=== PATIENT | female | born 1990 | race Caucasian/White ===

== ENCOUNTER 2018-06-28 13:15 | Outpatient (RCR) | payer SELFPAY | END 2018-07-14 23:59 | disposition home or self-care (01) | LOC: INF 13:15 | DX: R69 Illness, unspecified (principal) ==

== ENCOUNTER 2019-10-29 06:41 | Inpatient (IN) | payer SELFPAY ==
[2019-10-29] VITALS (14 sets, daily range): BP systolic 121–131; BP diastolic 64–80; PULSE 70–333; RESP 14–22; TEMP 36.8–37.6; O2SAT 98–99
[2019-10-30 09:32] VITALS: PULSE 200
[2019-10-30 13:49] VITALS: BP 136/79; PULSE 126
[2019-10-31 10:54] VITALS: TEMP 37
== END 2019-10-31 14:33 | disposition home or self-care (01) | DRG 951 ==
DX: R69 Illness, unspecified (principal)
CPT/HCPCS: 85027; 86900; 86901

== ENCOUNTER 2019-11-01 08:19 | Inpatient (IN) | payer SELFPAY ==
--- NOTE | 2019-11-01 13:29 | W.PM.OBHPL1 ---
OB-HPI Labor/Delivery History of Present Illness Chief Complaint: Uterine Contractions; Signs/Symptoms Gestational HTN. EMILEE Calculator Estimated Delivery Date Method Current WG Current Estimate 11/09/19 LMP (Certain) 38w 6d History of Present Expected Delivery Route/Plan testing the delivery plan section Specific Issues/Plan testing the plan section [facility] Medical History (Updated 10/26/19 @ 12:36 by Aaliyah Harry) depression Surgical History (Updated 10/26/19 @ 12:36 by Aaliyah Harry) History of appendectomy Social History (Updated 10/26/19 @ 12:37 by Aaliyah Harry) Smoking/Tobacco Use Status: Never Alcohol Intake: former Drug use: Never Do you feel safe at home: Yes Do you feel safe in your relationship?: Yes History History 8 Para 7 Hx # Term Pregnancies 1 Multiple births Hx # Pregnancies 1 Ectopic pregnancies AB induced 1 Hx Number of Living Children 2 AB spontaneous 1 Past Pregnancies Del. Date GA/Weeks # Outcome Route Wgt Sex Labor Lgth Anesthesia Location Prov Complic Unknown 36 Successful vaginal Male 20 hrs Naomi Nance Unknown 39 No Successful vaginal 7 lb 6 oz Female 15 hrs Stephany uHll Meds Home Medications and Allergies Home Medications Medication Instructions Recorded Confirmed Type prenat.vits,humberto,[id number] 1 tab PO DAILY 10/29/19 10/29/19 History [ #2] Allergies Allergy/AdvReac Type Severity Reaction Status Date / Time No Known Allergies Allergy Unverified 10/29/19 12:17 Exam Detailed Labor and Delivery Exam Adams Score: Cervical Points Exam 0 1 2 3 Dilation Closed 1-2cm 3-4 cm 5-6cm Effacement 0-30% 40-50% 60-70% 80% Consistency Firm Medium Soft Station -3 -2 -1,0 +1,+2 Position Posterior Mid Anterior Risk Assessment Risk for Shoulder Dystocia Increased Risk?: Yes Risk for Pre-Eclampsia Daily Dose ASA Indicated: No Risk for Post- Hemorrhage At Risk?: Yes
== END 2019-11-02 13:43 | disposition home or self-care (01) | DRG 951 ==
DX: R69 Illness, unspecified (principal)

== ENCOUNTER 2019-11-05 14:11 | Inpatient (IN) | payer SELFPAY ==
--- NOTE | 2019-11-06 06:41 | W.OBDELIVERY ---
OB Labor/ Delivery Information Labor/Delivery Information Shoulder Dystocia: No Stages of Labor Onset of Labor Date: 11/05/19 Onset of Labor Time: 06:30 Complete Dilatation Date: 11/06/19 Complete Dilatation Time: 06:10 Infant Delivery Date-Baby A: 11/06/19 Delivery Time-Baby A: 06:31 Baby A Gestational Age in Weeks/Days: 34 Weeks and 1 Days Length-Baby A: 19.75 in Interventions Assisted Delivery Baby A : Shoulder Dystocia Delivery Times Delivery Date-Baby A: 11/06/19 Infant Delivery Time-Baby A: 06:31
--- NOTE | 2019-11-07 07:21 | W.OBDELIVERY ---
OB Labor/ Delivery Information Labor/Delivery Information Shoulder Dystocia: No Stages of Labor Onset of Labor Date: 11/05/19 Onset of Labor Time: 06:30 Complete Dilatation Date: 11/06/19 Complete Dilatation Time: 06:10 Labor - Stage 1 Duration: 24 hours and 0 minutes ROM Baby A: 11/06/19 ROM Baby A: 12:00 ROM Total Time- Baby A: [id number] Delivery Date-Baby A: 11/06/19 Delivery Time-Baby A: 13:00 Labor Stage 2 Duration: 6 hours and 50 minutes Placenta Delivery Date-Baby A: 11/06/19 Placenta Delivery Time-Baby A: 13:29 Labor-Stage 3 Duration: 29 minutes Total Length of Labor-Baby A: 30 hours and 30 minutes Baby A Gestational Age in Weeks/Days: 34 Weeks and 1 Days Length-Baby A: 19.75 in Interventions Assisted Delivery Shoulder Dystocia Delivery Times Delivery Date-Baby A: 11/06/19 Infant Delivery Time-Baby A: 13:00
[2019-11-07 22:23] VITALS: O2SAT 94; O2SAT 97
--- NOTE | 2019-12-06 15:15 | W.PM.OBHPL1 ---
OB-HPI Labor/Delivery History of Present Illness EMILEE Calculator Estimated Delivery Date Method Current WG Current Estimate 11/09/19 LMP (Certain) 43w 6d History of Present Expected Delivery Route/Plan testing the delivery plan section Specific Issues/Plan testing the plan section [facility] Medical History (Updated 10/26/19 @ 12:36 by Aaliyah Hrary) depression Surgical History (Updated 10/26/19 @ 12:36 by Aaliyah Harry) History of appendectomy Social History (Updated 10/26/19 @ 12:37 by Aaliyah Harry) Smoking/Tobacco Use Status: Never Alcohol Intake: former Drug use: Never Do you feel safe at home: Yes Do you feel safe in your relationship?: Yes History History 12 Para 11 Hx # Term Pregnancies 1 Multiple births Hx # Pregnancies 1 Ectopic pregnancies AB induced 1 Hx Number of Living Children 2 AB spontaneous 1 Past Pregnancies Del. Date GA/Weeks # Outcome Route Wgt Sex Labor Lgth Anesthesia Location Prov Complic Unknown 36 Successful vaginal Male 20 hrs Namoi Nance Unknown 39 No Successful vaginal 3345.244 g Female 15 hrs Anea Leloharjit Meds Home Medications and Allergies Home Medications Medication Instructions Recorded Confirmed Type prenat.vits,humberto,[id number]-sqfyz 1 tab PO DAILY 10/29/19 11/18/19 History [KPN] Allergies Allergy/AdvReac Type Severity Reaction Status Date / Time No Known Allergies Allergy Unverified 10/29/19 12:17 Exam Detailed Labor and Delivery Exam Adams Score: Cervical Points Exam 0 1 2 3 Dilation Closed 1-2cm 3-4 cm 5-6cm Effacement 0-30% 40-50% 60-70% 80% Consistency Firm Medium Soft Station -3 -2 -1,0 +1,+2 Position Posterior Mid Anterior Fetus A Date of Membrane Rupture: 11/06/19 Time of Membrane Rupture: 12:00 Risk Assessment Risk for Shoulder Dystocia Increased Risk?: Yes Risk for Pre-Eclampsia Daily Dose ASA Indicated: No Risk for Post- Hemorrhage At Risk?: Yes
--- NOTE | 2019-12-06 15:37 | W.PM.OBDISCH ---
Discharge Plan Disposition Patient Disposition: HOME Condition: Good Discharge Details Admit Date/Time: 11/05/19 14:11 Admit Provider: Doctor Chino Attending Provider: Doctor Chino Home Meds and New Rx's Prescriptions: No Action KPN Tablet 1 tab PO DAILY RF: 0 Discharge Instructions Equipment/Supplies:: No Equipment Needed Diet:: Normal Diet Discharge Data Discharge Date/Time-TO BE ENTERED AT DEPARTURE: 11/14/19 11:27 [facility] Medical History (Updated 12/06/19 @ 15:22 by Velvet Harman) depression Surgical History (Updated 10/26/19 @ 12:36 by Aaliyah Harry) History of appendectomy Social History (Updated 10/26/19 @ 12:37 by Aaliyah Harry) Smoking/Tobacco Use Status: Never Alcohol Intake: former Drug use: Never Do you feel safe at home: Yes Do you feel safe in your relationship?: Yes History History 12 Para 11 Hx # Term Pregnancies 1 Multiple births Hx # Pregnancies 1 Ectopic pregnancies AB induced 1 Hx Number of Living Children 2 AB spontaneous 1 Past Pregnancies Del. Date GA/Weeks # Outcome Route Wgt Sex Labor Lgth Anesthesia Location Prov Complic Unknown 36 Successful vaginal Male 20 hrs Naomi Nance Unknown 39 No Successful vaginal 3345.244 g Female 15 hrs Stephany Hull
== END 2019-11-14 11:27 | disposition home or self-care (01) | DRG 951 ==
DX: R69 Illness, unspecified (principal)

== ENCOUNTER 2019-12-06 16:06 | Outpatient (RCR) | payer SELFPAY ==
--- NOTE | 2019-12-06 16:00 | HOLTER_ITS ---
APPROVED REPORT Exam Type: ZNO HOLTER MONITOR APPLICATION Reason for Test: TEST HOLTER Patient Location: O Conclusion testing for holter 12/10/19
== END 2019-12-15 23:59 | disposition home or self-care (01) ==
LOC: RT 16:06
DX: R69 Illness, unspecified (principal)
CPT/HCPCS: 93225